=== PATIENT | male | born 1970 | race Asian ===

== ENCOUNTER 2020-01-21 13:58 | Inpatient (IN) | payer BC, OTHER ==
[~2020-01-21] VITALS: Ht 170.2 cm; Wt 78.9 kg
--- NOTE | 2020-01-21 16:30 | NUR ---
RECEIVED TO UNIT VIA GURNEY IN NO ACUTE DISTRESS. ORIENTED TO ROOM AND SURROUNDINGS. VSS IN NO ACUTE DISTRESS
[2020-01-21 20:00] VITALS: BP 100/49
--- NOTE | 2020-01-21 21:29 | NUR ---
PATIENT ALERT ORIENTED, NO SOB NO CHEST PAIN, OXYGEN SAT WNL, NO COMPLAIN OF PAIN, V/S STABLE, NOTIFY DR. GUTIÉRREZ REGARDING MEDICATION NEEDS RECONCILIATION, CONT TO MONITOR.
[2020-01-21] MEDS ORDERED: MAGNESIUM HYDROXIDE 30 ML LIQUID UDC PO SCH (21:45)
[2020-01-21] MEDS: levETIRAcetam 500 MG TABLET PO SCH (22:37)
[2020-01-21] MEDS ORDERED: MAGNESIUM HYDROXIDE 30 ML LIQUID UDC PO PRN (23:00)
[2020-01-22 06:14] VITALS: BP 105/72
[2020-01-22] MEDS: PANTOPRAZOLE SODIUM 40 MG TABLET.DR PO SCH (06:14)
--- NOTE | 2020-01-22 07:09 | NUR ---
PATIENT ALERT ORIENTED, NO SOB NO CHEST PAIN, V.S STABLE, NO COMPLAIN OF PAIN, SLEPT MOST OF THE NIGHT, CONT TO MONITOR, USES URINAL FOR URINATION, CALL LIGHT WITHIN REACH.
[2020-01-22] MEDS ORDERED: PANTOPRAZOLE SODIUM 40 MG TABLET.DR PO SCH (07:30)
[2020-01-22] MEDS ORDERED: MULTIVITAMINS,THERAPEUTIC TABLET GT SCH (09:00)
[2020-01-22] MEDS: levETIRAcetam 500 MG TABLET PO SCH ×2 (09:27→16:03)
[2020-01-22] MEDS: MULTIVITAMINS,THERAPEUTIC TABLET PO SCH (09:28)
[2020-01-22] MEDS: LACOSAMIDE 50 MG TABLET PO SCH ×2 (09:28→20:58)
[2020-01-22 12:00] VITALS: BP 121/72
[2020-01-22] MEDS: ACETAMINOPHEN 325 MG TABLET PO PRN (13:36)
[2020-01-22 16:00] VITALS: BP 115/70
[2020-01-22 20:00] VITALS: BP 99/66
--- NOTE | 2020-01-22 20:00 | NUR ---
Received patient awake and alert in bed, A/Ox4. No signs of acute distress noted. No complaints of pain or SOB. On 1.5L NC saturating well. Patient stated he did well with PT/OT today. PICC line triple lumen on the right upper arm is intact and patent. Safety measures initiated. Bed is low and locked, call light within reach. Will continue to monitor.
[2020-01-23 04:17] VITALS: BP 90/54
[2020-01-23 05:36] LABS: BASOPHILS # (AUTO) 0.1 K/uL (0.0-8.0); BASOPHILS % (AUTO) 1.2 % (0.0-2.0); EOSINOPHILS # (AUTO) 0.4 K/uL (0.0-0.7); EOSINOPHILS % (AUTO) 8.1 % (0.0-7.0); HEMATOCRIT 39.8 % (36.7-47.1); HEMOGLOBIN 13.2 g/dL (12.5-16.3); LYMPHOCYTES # (AUTO) 1.3 K/uL (20.0-40.0); LYMPHOCYTES % (AUTO) 24.9 % (20.5-51.5); MEAN CORPUSCULAR HEMOGLOBIN 30.7 uug (23.8-33.4); MEAN CORPUSCULAR HGB CONC 33 g/dL (32.5-36.3); MEAN CORPUSCULAR VOLUME 92.7 fL (73.0-96.2); MONOCYTES # (AUTO) 0.6 K/uL (2.0-10.0); MONOCYTES % (AUTO) 11.9 % (0.0-11.0); NEUTROPHILS # (AUTO) 2.8 K/uL (1.8-8.9); NEUTROPHILS % (AUTO) 53.9 % (38.5-71.5); PLATELET COUNT (AUTO) 313 K/uL (152-348); RED BLOOD CELL COUNT(AUTO) 4.29 MIL/uL (4.06-5.63); WHITE BLOOD COUNT (AUTO) 5.3 K/uL (3.6-10.2)
--- NOTE | 2020-01-23 06:12 | NUR ---
Patient slept well throughout the night. No distress noted. Vitals WNL. Safety measures given. Will endorse to next shift.
[2020-01-23 06:14] LABS: THYROID STIMULATING HORMONE 0.972 mIU/mL (0.358-3.740)
[2020-01-23] MEDS: PANTOPRAZOLE SODIUM 40 MG TABLET.DR PO SCH (06:27)
[2020-01-23 06:29] LABS: BILIRUBIN,TOTAL 0.7 mg/dL (0.2-1.0); MAGNESIUM 1.8 mg/dL (1.8-2.4); PHOSPHOROUS 3.6 mg/dL (2.5-4.9); POTASSIUM 3.8 mmol/L (3.5-5.1); TOTAL PROTEIN, SERUM 6.4 g/dL (6.4-8.2)
[2020-01-23 06:37] LABS: CREATININE 0.8 mg/dL (0.6-1.3)
[2020-01-23] MEDS: LACOSAMIDE 50 MG TABLET PO SCH ×2 (08:51→21:44)
[2020-01-23] MEDS: MULTIVITAMINS,THERAPEUTIC TABLET PO SCH (08:51)
[2020-01-23] MEDS: ACETAMINOPHEN 325 MG TABLET PO PRN (08:51)
--- NOTE | 2020-01-23 09:20 | NUR ---
Patient is AAO x 4, able to express all needs. In NO acute distress. Patient is on O2 NC @ 1.5LPM with O2 saturation of 96%. Patient complained of body aches administered Tylenol 650mg 2 tabs. Picc line on GARY intact and patent. All other needs attended, safety measures in place, call light left at bed side and will continue with care.
[2020-01-23] MEDS: levETIRAcetam 500 MG TABLET PO SCH ×2 (12:09→21:44)
[2020-01-23 16:00] VITALS: BP 92/56
--- NOTE | 2020-01-23 19:41 | NUR ---
Patient is AAO x 4. NO acute distress noted. Able to express needs. O2 NC at 1lpm with O2 saturation of 96-98%. Vital signs stable for patient. No c/o pain throughout shift. All due medications administered and tolerated well. Pt. on PT/OT therapy. Uses a walker and w/c. All other needs attended, safety measures in place, call light left within easy reach, endorsed to next shift and will continue with care.
--- NOTE | 2020-01-23 20:00 | NUR ---
Received patient awake and alert in bed watching videos on the phone. Patient is A/Ox4. No signs of acute distress noted. No complaints of pain or SOB. On 1.0L NC saturating well at 97%. PICC line triple lumen on the right upper arm is intact and patent. Safety measures initiated. Bed is low and locked, call light within reach. Patient makes needs known. Will continue to monitor.
[2020-01-23 20:30] VITALS: BP 100/69
[2020-01-24 06:47] VITALS: BP 93/60
--- NOTE | 2020-01-24 07:00 | NUR ---
end shift: Patient is AAO x 4. NO acute distress noted. Able to express needs. O2 NC at 1lpm with O2 saturation of 96-98%. Vital signs stable for patient. Dr. Crook informed regarding results of positive MRSA, with no new orders yet. Spoke and informed [employer] Sveta, no new orders. No c/o pain throughout shift. Patient uses walker BRP to go the bathroom. All due medications administered and tolerated well. All other needs attended, safety measures in place, call light left within easy reach, endorsed to next shift and will continue with care.
[2020-01-24] MEDS: PANTOPRAZOLE SODIUM 40 MG TABLET.DR PO SCH (07:02)
[2020-01-24 08:00] VITALS: BP 98/68
--- NOTE | 2020-01-24 08:13 | NUR ---
Received patient in bed awake, in NO acute distress. Able to express needs. No c/o pain at this time. All needs attended, safety measures in place and will continue with care.
[2020-01-24] MEDS: LACOSAMIDE 50 MG TABLET PO SCH ×2 (08:29→21:54)
[2020-01-24] MEDS: ACETAMINOPHEN 325 MG TABLET PO PRN ×3 (08:29→21:54)
[2020-01-24] MEDS: MULTIVITAMINS,THERAPEUTIC TABLET PO SCH (08:29)
[2020-01-24] MEDS: levETIRAcetam 500 MG TABLET PO SCH ×2 (08:30→21:54)
[2020-01-24 15:42] VITALS: BP 96/93
--- NOTE | 2020-01-24 15:57 | NUR ---
INDIVIDUALIZED PLAN OF CARE
--- NOTE | 2020-01-24 20:00 | NUR ---
Received patient awake and alert in wheelchair. Patient is A/Ox4. No signs of acute distress noted. No complaints of pain or SOB. On 1L NC PRN saturating well at 95%RA. Patient stated he did well with PT/OT today and requested Tylenol with his medications because he is feeling sore. PICC line triple lumen on the right upper arm is intact and patent. Safety measures initiated. Bed is low and locked, call light within reach. All needs attended to. Plan is to be discharged tomorrow Will continue to monitor.
[2020-01-24 20:07] VITALS: BP 109/73
[2020-01-24] MEDS ORDERED: ATORVASTATIN 10 MG TABLET PO SCH (21:00)
[2020-01-24] MEDS: MUPIROCIN 2% OINT 22 GM TUBE TP SCH (21:55)
[2020-01-25 05:26] VITALS: BP 96/54
--- NOTE | 2020-01-25 06:23 | NUR ---
End of shift note: Patient is well rested. No acute distress noted. Able to express needs. O2 saturation of 95% RA. Vital signs stable for patient. No c/o pain throughout shift. Patient uses walker BRP to go the bathroom. All due medications administered and tolerated well. Patient requested Tylenol sore muscles after physical therapy. All needs attended, safety measures in place, call light left within reach, endorsed to next shift and plan is to discharge.
[2020-01-25] MEDS: PANTOPRAZOLE SODIUM 40 MG TABLET.DR PO SCH (06:44)
[2020-01-25 08:00] VITALS: BP 106/72
[2020-01-25] MEDS: ACETAMINOPHEN 325 MG TABLET PO PRN (08:26)
[2020-01-25] MEDS: levETIRAcetam 500 MG TABLET PO SCH (08:27)
[2020-01-25] MEDS: MULTIVITAMINS,THERAPEUTIC TABLET PO SCH (08:27)
[2020-01-25] MEDS: LACOSAMIDE 50 MG TABLET PO SCH (08:27)
[2020-01-25] MEDS: MUPIROCIN 2% OINT 22 GM TUBE TP SCH (08:28)
[2020-01-25 12:00] VITALS: BP 115/70
--- NOTE | 2020-01-25 14:12 | NUR ---
PATIENT ALERT, ORIENTED X4, NO DISTRESS NOTED, DISCHARGED HOME, INSTRUCTIONS GIVEN, PICC DISCONTINUED, NO SIGNS AND SYMPTOMS OF BLEEDING NOTED AT SITE OF PICC LINE, PATIENT VERBALIZED UNDERSTANDING OF DISCHARGE INSTRUCTIONS, BELONGINGS ACCOUNTED AND SIGNED, ASSISTED TO GO TO CAR SAFELY, NO DISTRESS NOTED ID BAND REMOVED.
== END 2020-01-25 14:10 | disposition home or self-care (01) | DRG 999 ==
PROVIDERS: ADMIT Physical Medicine & Rehabilitation Pain Medicine; ATTEND Physical Medicine & Rehabilitation Pain Medicine
DX: U07.1 COVID-19 (principal); J12.89 Other viral pneumonia; J96.01 Acute respiratory failure with hypoxia; I10 Essential (primary) hypertension; G40.909 Epilepsy, unspecified, not intractable, without status epilepticus; E78.5 Hyperlipidemia, unspecified; R53.1 Weakness; R74.0 Nonspecific elevation of levels of transaminase and lactic acid dehydrogenase [LDH]; I95.9 Hypotension, unspecified
CPT/HCPCS: 36415; 82652; 83735; 84100; 84443; 85025; A4663